=== PATIENT | female | born 1980 | race Caucasian/White ===

== ENCOUNTER 2020-07-06 13:07 | Outpatient (CLI) | payer BC ==
--- NOTE | 2020-07-06 14:00 | RAD ---
XR Chest Pa Lat STANDARD HISTORY: Acute bronchitis COMPARISON: None FINDINGS: The heart size is normal. The lungs are well expanded without focal areas of consolidation, pneumothorax or pleural effusions. IMPRESSION: No radiographic evidence of acute cardiopulmonary process.
== END 2020-07-06 13:08 | disposition home or self-care (01) ==
LOC: BICRAD 13:07
PROVIDERS: ATTEND Family Medicine
DX: J20.9 Acute bronchitis, unspecified (principal)
CPT/HCPCS: 71046